=== PATIENT | male | born 1950 | race Caucasian/White ===

== ENCOUNTER 2023-03-28 13:21 | Inpatient (IN) | payer OTHER, MEDICAID ==
[~2023-03-28] VITALS: Ht 180.3 cm; Wt 96.2 kg
[2023-03-28 13:39] VITALS: BP_SYST 126; PULSE 62; RESP 18; TEMP 97.6; O2SAT 95
[2023-03-28] MEDS ORDERED: NACL 0.9% 1,000 ML IV ONE (14:45)
[2023-03-28] MEDS ORDERED: VANCOMYCIN HCL 1,000 MG in NS 250 ML IV ONE (15:15)
[2023-03-28 15:35] LABS: ANION GAP 6 (5-15); CALCIUM 7.5 mg/dL (8.4-11.0); CARBON DIOXIDE 29 mmol/L (23-29); CHLORIDE 107 mmol/L (98-107); CREATININE 1.04 mg/dL (0.55-1.30); GLUCOSE 105 mg/dL (74-106); SODIUM SERUM 142 mmol/L (136-145); UREA NITROGEN, BLOOD 19 mg/dL (8-21)
[2023-03-28] MEDS ORDERED: VANCOMYCIN HCL 1000 MG/VIAL IV ONE ×2 (15:37→15:38)
[2023-03-28 15:38] LABS: INR 1.3 (0.80-1.20); PROTHROMBIN TIME 13.4 SECS (9.5-12.5)
[2023-03-28 15:41] LABS: ALANINE AMINOTRANSFERASE 19 U/L (12-78); ALBUMIN 2.8 g/dL (3.4-4.8); ASPARTATE AMINOTRANSFERASE 23 U/L (10-37); TOTAL PROTEIN, SERUM 6.1 g/dL (6.4-8.3)
[2023-03-28 15:43] LABS: BASOPHILS % (AUTO) 0.2 % (0.0-2.0); EOSINOPHILS # (AUTO) 0.2 K/uL (0.0-0.4); EOSINOPHILS % (AUTO) 5.1 % (0.0-4.0); HEMATOCRIT 33.4 % (36-54); HEMOGLOBIN 11.1 g/dL (14.0-18.0); LYMPHOCYTES # (AUTO) 0.6 K/uL (1.0-5.5); LYMPHOCYTES % (AUTO) 16.7 % (20.5-51.5); MEAN CORPUSCULAR HEMOGLOBIN 29 pg (27-31); MEAN CORPUSCULAR HGB CONC 33 % (32-36); MEAN CORPUSCULAR VOLUME 87 fL (79.0-98.0); MONOCYTES # (AUTO) 0.4 K/uL (0.0-1.0); MONOCYTES % (AUTO) 10.6 % (1.7-9.3); NEUTROPHILS # (AUTO) 2.6 K/uL (1.8-7.7); NEUTROPHILS % (AUTO) 67.4 % (40.0-70.0); PLATELET COUNT (AUTO) 101 K/uL (130-430); RED BLOOD CELL COUNT(AUTO) 3.83 MIL/uL (4.2-6.2); WHITE BLOOD COUNT (AUTO) 3.9 K/uL (4.8-10.8)
[2023-03-28] MEDS ORDERED: [UNRECOGNIZED DRUG - CODE] PO (16:15)
[2023-03-28] MEDS ORDERED: ONDANSETRON HCL 4 MG/2 ML VIAL IVP PRN (16:45)
[2023-03-28] MEDS ORDERED: HYDROcodone/ACETAMIN 5-325 MG TAB (NORCO/ VICODIN) PO PRN (16:45)
[2023-03-28] MEDS ORDERED: HYDROcodone/ACETAMIN 10-325 MG TAB PO PRN (16:45)
[2023-03-28] MEDS ORDERED: LORazepam 2 MG/ML VIAL IVP PRN (16:45)
[2023-03-28] MEDS ORDERED: ACETAMINOPHEN 325 MG TABLET PO PRN ×2 (16:45→17:00)
[2023-03-28] MEDS ORDERED: MONT-47 (18:23)
[2023-03-28] MEDS ORDERED: OMEP40CA20 PO (18:23)
[2023-03-28] MEDS ORDERED: LIP20 PO (18:23)
[2023-03-28] MEDS ORDERED: APIX5TAB PO (18:23)
[2023-03-28] MEDS ORDERED: OXYB-55 PO (18:23)
[2023-03-28] MEDS ORDERED: TAMS-11 PO (18:23)
[2023-03-28] MEDS ORDERED: ISOS20TA8 PO (18:23)
[2023-03-28] MEDS ORDERED: ASPI-859 PO (18:23)
[2023-03-28] MEDS ORDERED: NEU300 PO (18:23)
[2023-03-28] MEDS ORDERED: ALBMDI INH (18:23)
[2023-03-28] MEDS ORDERED: CYCL10TA24 PO (18:23)
[2023-03-28] MEDS ORDERED: DORZ1DRO7 OP (18:24)
[2023-03-28 19:36] LABS: BILIRUBIN,URINE NEGATIVE (NEGATIVE); BLOOD, URINE NEGATIVE (NEGATIVE); CLARITY/URINE CLEAR (CLEAR); COLOR,URINE YELLOW (YELLOW); GLUCOSE,URINE NEGATIVE (NEGATIVE); KETONES,URINE NEGATIVE (NEGATIVE); LEUKOCYTE ESTERASE ,URINE NEGATIVE (NEGATIVE); NITRITE, URINE NEGATIVE (NEGATIVE); PH,URINE 5.5 (5.0-8.0); PROTEIN URINE NEGATIVE (NEGATIVE)
[2023-03-28 20:26] VITALS: BP_SYST 166; PULSE 69; RESP 20; TEMP 97.7; O2SAT 98
[2023-03-29] VITALS (8 sets, daily range): BP systolic 128–166; PULSE 69–91; RESP 16–21; TEMP 97.7–99.4; O2SAT 96–98
[2023-03-29] MEDS: PIPERACILLIN/TAZO 3.375/DEX-IS 50 ML IV SCH ×2 (00:03→06:04)
[2023-03-29] MEDS: NORMAL SALINE 5 ML DISP.SYRIN IVF SCH ×4 (00:03→21:31)
[2023-03-29 05:51] LABS: BASOPHILS % (AUTO) 0.3 % (0.0-2.0); EOSINOPHILS # (AUTO) 0.2 K/uL (0.0-0.4); EOSINOPHILS % (AUTO) 4.6 % (0.0-4.0); HEMATOCRIT 34.9 % (36-54); HEMOGLOBIN 11.5 g/dL (14.0-18.0); LYMPHOCYTES # (AUTO) 0.7 K/uL (1.0-5.5); MEAN CORPUSCULAR HEMOGLOBIN 29 pg (27-31); MEAN CORPUSCULAR HGB CONC 33 % (32-36); MEAN CORPUSCULAR VOLUME 87 fL (79.0-98.0); MONOCYTES # (AUTO) 0.4 K/uL (0.0-1.0); MONOCYTES % (AUTO) 8.6 % (1.7-9.3); NEUTROPHILS # (AUTO) 3.6 K/uL (1.8-7.7); NEUTROPHILS % (AUTO) 72.5 % (40.0-70.0); PLATELET COUNT (AUTO) 108 K/uL (130-430); RED BLOOD CELL COUNT(AUTO) 4.02 MIL/uL (4.2-6.2); RED CELL DISTRIBUTION WIDTH 17.2 % (9.0-15.0); WHITE BLOOD COUNT (AUTO) 4.9 K/uL (4.8-10.8)
[2023-03-29 06:23] LABS: ALANINE AMINOTRANSFERASE 19 U/L (12-78); ALBUMIN 2.9 g/dL (3.4-4.8); ANION GAP 10 (5-15); ASPARTATE AMINOTRANSFERASE 23 U/L (10-37); CALCIUM 7.6 mg/dL (8.4-11.0); CARBON DIOXIDE 26 mmol/L (23-29); CHLORIDE 106 mmol/L (98-107); CREATININE 0.81 mg/dL (0.55-1.30); GLUCOSE 90 mg/dL (74-106); PHOSPHORUS 2.7 mg/dL (2.7-4.5); POTASSIUM 3.6 mmol/L (3.5-5.1); SODIUM SERUM 142 mmol/L (136-145); TOTAL BILIRUBIN 1.2 mg/dL (0.0-1.0); TOTAL PROTEIN, SERUM 6.1 g/dL (6.4-8.3); UREA NITROGEN, BLOOD 16 mg/dL (8-21)
[2023-03-29] MEDS ORDERED: MENTHOL/ZINC OXIDE 113 GM OINT. TP PRN (13:00)
[2023-03-29] MEDS: VANCOMYCIN HCL 1,250 MG in NS 250 ML IV SCH (13:55)
[2023-03-29] MEDS: BALSAM PERU/CASTOR OIL 56.7 GM OINT...G. TP SCH (15:03)
[2023-03-29] MEDS: DORZOLAMIDE HCL/TIMOLOL MAL. 10 ML EYE DROPS (COSOPT) OP SCH (21:25)
[2023-03-29] MEDS: CELECOXIB 200 MG CAPSULE PO SCH (21:27)
[2023-03-29] MEDS: GABAPENTIN 300 MG CAPSULE PO SCH (21:27)
[2023-03-29] MEDS: CYCLOBENZAPRINE HCL 10 MG TABLET (FLEXERIL) PO SCH (21:28)
[2023-03-29] MEDS: ISOSORBIDE DINITRATE 20 MG TABLET (ISORDIL) PO SCH (21:28)
[2023-03-29] MEDS: ATORVASTATIN 20 MG TABLET PO SCH (21:29)
[2023-03-29] MEDS: APIXABAN 2.5 MG TABLET PO SCH (21:31)
[2023-03-29] MEDS: CEFEPIME 2 GM in D5W 100 ML IV SCH (21:46)
[2023-03-30 00:57] VITALS: BP_SYST 109; PULSE 61; RESP 17; TEMP 98.9; O2SAT 99
[2023-03-30] MEDS: VANCOMYCIN HCL 1,250 MG in NS 250 ML IV SCH ×2 (01:33→14:18)
[2023-03-30 05:02] LABS: ERYTHROCYTE SEDIMENTATION RATE 21 MM/HR (0-15)
[2023-03-30 05:14] LABS: BASOPHILS % (AUTO) 0.4 % (0.0-2.0); EOSINOPHILS # (AUTO) 0.1 K/uL (0.0-0.4); EOSINOPHILS % (AUTO) 3.1 % (0.0-4.0); HEMATOCRIT 32.6 % (36-54); HEMOGLOBIN 10.8 g/dL (14.0-18.0); LYMPHOCYTES # (AUTO) 0.8 K/uL (1.0-5.5); LYMPHOCYTES % (AUTO) 18.7 % (20.5-51.5); MEAN CORPUSCULAR HEMOGLOBIN 29 pg (27-31); MEAN CORPUSCULAR HGB CONC 33 % (32-36); MEAN CORPUSCULAR VOLUME 87 fL (79.0-98.0); MONOCYTES # (AUTO) 0.6 K/uL (0.0-1.0); MONOCYTES % (AUTO) 13.9 % (1.7-9.3); NEUTROPHILS # (AUTO) 2.7 K/uL (1.8-7.7); NEUTROPHILS % (AUTO) 63.9 % (40.0-70.0); PLATELET COUNT (AUTO) 102 K/uL (130-430); RED BLOOD CELL COUNT(AUTO) 3.75 MIL/uL (4.2-6.2); RED CELL DISTRIBUTION WIDTH 17.1 % (9.0-15.0); WHITE BLOOD COUNT (AUTO) 4.3 K/uL (4.8-10.8)
[2023-03-30 05:26] LABS: ANION GAP 9 (5-15); CARBON DIOXIDE 25 mmol/L (23-29); CHLORIDE 106 mmol/L (98-107); CREATININE 0.85 mg/dL (0.55-1.30); GLUCOSE 88 mg/dL (74-106); POTASSIUM 3.4 mmol/L (3.5-5.1); SODIUM SERUM 140 mmol/L (136-145); UREA NITROGEN, BLOOD 14 mg/dL (8-21)
[2023-03-30 05:33] LABS: VANCOMYCIN,TROUGH 27.1 ug/mL (10.0-20.0)
[2023-03-30] MEDS: NORMAL SALINE 5 ML DISP.SYRIN IVF SCH ×3 (05:37→21:17)
[2023-03-30 07:48] VITALS: BP_SYST 110; PULSE 48; RESP 18; TEMP 98.8; O2SAT 95
[2023-03-30 08:00] VITALS: O2SAT 95
[2023-03-30] MEDS: GABAPENTIN 300 MG CAPSULE PO SCH ×3 (08:54→21:12)
[2023-03-30] MEDS: TAMSULOSIN HCL 0.4 MG CAP PO SCH (08:54)
[2023-03-30] MEDS: PANTOPRAZOLE SODIUM 40 MG TAB PO SCH (08:54)
[2023-03-30] MEDS: MONTELUKAST 10 MG TABLET PO SCH (08:54)
[2023-03-30] MEDS: ASPIRIN 81 MG TABLET(ECOTRIN) PO SCH (08:54)
[2023-03-30] MEDS: ISOSORBIDE DINITRATE 20 MG TABLET (ISORDIL) PO SCH ×2 (08:54→21:14)
[2023-03-30] MEDS: CELECOXIB 200 MG CAPSULE PO SCH ×2 (08:54→21:13)
[2023-03-30] MEDS: CEFEPIME 2 GM in D5W 100 ML IV SCH ×2 (08:55→22:07)
[2023-03-30] MEDS: APIXABAN 2.5 MG TABLET PO SCH ×2 (08:59→21:16)
[2023-03-30] MEDS: DORZOLAMIDE HCL/TIMOLOL MAL. 10 ML EYE DROPS (COSOPT) OP SCH ×2 (09:03→21:14)
[2023-03-30] MEDS ORDERED: POTASSIUM CHLORIDE 20 MEQ TAB.PRT.SR PO ONE (11:00)
[2023-03-30] MEDS ORDERED: CALCIUM 500 MG/TAB PO ONE (11:15)
[2023-03-30 11:56] VITALS: BP_SYST 122; PULSE 60; RESP 19; TEMP 98.6; O2SAT 96
[2023-03-30 16:39] VITALS: BP_SYST 121; PULSE 62; RESP 19; TEMP 98.2; O2SAT 98
[2023-03-30] MEDS: BALSAM PERU/CASTOR OIL 56.7 GM OINT...G. TP SCH (16:48)
[2023-03-30 20:00] VITALS: BP_SYST 140; PULSE 68; RESP 18; TEMP 97.5; O2SAT 99
[2023-03-30] MEDS ORDERED: CALCIUM CARBONATE 650 MG TABLET PO SCH (21:00)
[2023-03-30] MEDS: CYCLOBENZAPRINE HCL 10 MG TABLET (FLEXERIL) PO SCH (21:12)
[2023-03-30] MEDS: ATORVASTATIN 20 MG TABLET PO SCH (21:13)
[2023-03-31] VITALS (8 sets, daily range): BP systolic 116–156; PULSE 62–73; RESP 15–20; TEMP 97.3–98.2; O2SAT 92–98
[2023-03-31] MEDS: VANCOMYCIN HCL 1,250 MG in NS 250 ML IV SCH ×2 (02:48→13:35)
[2023-03-31] MEDS: NORMAL SALINE 5 ML DISP.SYRIN IVF SCH ×3 (06:00→21:12)
[2023-03-31 07:03] LABS: ALANINE AMINOTRANSFERASE 19 U/L (12-78); ALBUMIN 2.5 g/dL (3.4-4.8); ANION GAP 7 (5-15); ASPARTATE AMINOTRANSFERASE 25 U/L (10-37); CALCIUM 7.7 mg/dL (8.4-11.0); CARBON DIOXIDE 25 mmol/L (23-29); CHLORIDE 107 mmol/L (98-107); CREATININE 0.92 mg/dL (0.55-1.30); GLUCOSE 103 mg/dL (74-106); PHOSPHORUS 4.1 mg/dL (2.7-4.5); POTASSIUM 4.1 mmol/L (3.5-5.1); SODIUM SERUM 139 mmol/L (136-145); TOTAL BILIRUBIN 1.1 mg/dL (0.0-1.0); TOTAL PROTEIN, SERUM 5.7 g/dL (6.4-8.3); UREA NITROGEN, BLOOD 23 mg/dL (8-21)
[2023-03-31 07:10] LABS: BASOPHILS % (AUTO) 0.3 % (0.0-2.0); EOSINOPHILS # (AUTO) 0.2 K/uL (0.0-0.4); EOSINOPHILS % (AUTO) 7.2 % (0.0-4.0); HEMATOCRIT 32.5 % (36-54); HEMOGLOBIN 10.7 g/dL (14.0-18.0); LYMPHOCYTES # (AUTO) 0.7 K/uL (1.0-5.5); LYMPHOCYTES % (AUTO) 20.2 % (20.5-51.5); MEAN CORPUSCULAR HEMOGLOBIN 29 pg (27-31); MEAN CORPUSCULAR HGB CONC 33 % (32-36); MEAN CORPUSCULAR VOLUME 87 fL (79.0-98.0); MONOCYTES # (AUTO) 0.4 K/uL (0.0-1.0); MONOCYTES % (AUTO) 11.8 % (1.7-9.3); NEUTROPHILS # (AUTO) 2.1 K/uL (1.8-7.7); NEUTROPHILS % (AUTO) 60.5 % (40.0-70.0); PLATELET COUNT (AUTO) 95 K/uL (130-430); RED BLOOD CELL COUNT(AUTO) 3.73 MIL/uL (4.2-6.2); RED CELL DISTRIBUTION WIDTH 17.1 % (9.0-15.0); WHITE BLOOD COUNT (AUTO) 3.5 K/uL (4.8-10.8)
[2023-03-31 07:55] LABS: ERYTHROCYTE SEDIMENTATION RATE 24 MM/HR (0-15)
[2023-03-31] MEDS: ISOSORBIDE DINITRATE 20 MG TABLET (ISORDIL) PO SCH ×2 (09:02→21:19)
[2023-03-31] MEDS: ASPIRIN 81 MG TABLET(ECOTRIN) PO SCH (09:02)
[2023-03-31] MEDS: MONTELUKAST 10 MG TABLET PO SCH (09:02)
[2023-03-31] MEDS: PANTOPRAZOLE SODIUM 40 MG TAB PO SCH (09:02)
[2023-03-31] MEDS: CELECOXIB 200 MG CAPSULE PO SCH ×2 (09:02→21:18)
[2023-03-31] MEDS: CALCIUM 500 MG/TAB PO SCH (09:02)
[2023-03-31] MEDS: GABAPENTIN 300 MG CAPSULE PO SCH ×3 (09:02→21:19)
[2023-03-31] MEDS: TAMSULOSIN HCL 0.4 MG CAP PO SCH (09:02)
[2023-03-31] MEDS: CEFEPIME 2 GM in D5W 100 ML IV SCH ×2 (09:04→21:04)
[2023-03-31] MEDS: APIXABAN 2.5 MG TABLET PO SCH ×2 (09:09→21:21)
[2023-03-31] MEDS: BALSAM PERU/CASTOR OIL 56.7 GM OINT...G. TP SCH (09:10)
[2023-03-31] MEDS: DORZOLAMIDE HCL/TIMOLOL MAL. 10 ML EYE DROPS (COSOPT) OP SCH ×2 (09:10→21:00)
[2023-03-31] MEDS ORDERED: DOXY-244 PO (13:59)
[2023-03-31] MEDS ORDERED: ROCPM1 IV (14:56)
[2023-03-31] MEDS: DOXYCYCLINE HYCLATE 100 MG CAPSULE PO SCH (21:18)
[2023-03-31] MEDS: ATORVASTATIN 20 MG TABLET PO SCH (21:19)
[2023-03-31] MEDS: CYCLOBENZAPRINE HCL 10 MG TABLET (FLEXERIL) PO SCH (21:19)
[2023-04-01 00:22] VITALS: BP_SYST 133; PULSE 69; RESP 18; TEMP 98.2; O2SAT 97
[2023-04-01] MEDS: VANCOMYCIN HCL 1,250 MG in NS 250 ML IV SCH ×2 (02:14→14:33)
[2023-04-01 05:01] LABS: ERYTHROCYTE SEDIMENTATION RATE 23 MM/HR (0-15)
[2023-04-01 05:12] LABS: ANION GAP 6 (5-15); CALCIUM 7.8 mg/dL (8.4-11.0); CARBON DIOXIDE 27 mmol/L (23-29); CHLORIDE 107 mmol/L (98-107); CREATININE 1.02 mg/dL (0.55-1.30); GLUCOSE 98 mg/dL (74-106); POTASSIUM 4.2 mmol/L (3.5-5.1); SODIUM SERUM 140 mmol/L (136-145); UREA NITROGEN, BLOOD 23 mg/dL (8-21)
[2023-04-01] MEDS: NORMAL SALINE 5 ML DISP.SYRIN IVF SCH ×2 (05:24→14:00)
[2023-04-01 06:05] LABS: BASOPHILS % (AUTO) 0.3 % (0.0-2.0); EOSINOPHILS # (AUTO) 0.2 K/uL (0.0-0.4); EOSINOPHILS % (AUTO) 7.5 % (0.0-4.0); HEMATOCRIT 32.9 % (36-54); HEMOGLOBIN 10.8 g/dL (14.0-18.0); LYMPHOCYTES # (AUTO) 0.6 K/uL (1.0-5.5); LYMPHOCYTES % (AUTO) 19.2 % (20.5-51.5); MEAN CORPUSCULAR HEMOGLOBIN 29 pg (27-31); MEAN CORPUSCULAR HGB CONC 33 % (32-36); MEAN CORPUSCULAR VOLUME 87 fL (79.0-98.0); MONOCYTES # (AUTO) 0.4 K/uL (0.0-1.0); MONOCYTES % (AUTO) 11.5 % (1.7-9.3); NEUTROPHILS % (AUTO) 61.5 % (40.0-70.0); PLATELET COUNT (AUTO) 104 K/uL (130-430); RED CELL DISTRIBUTION WIDTH 17.1 % (9.0-15.0); WHITE BLOOD COUNT (AUTO) 3.3 K/uL (4.8-10.8)
[2023-04-01 08:00] VITALS: BP_SYST 142; PULSE 71; RESP 17; TEMP 97.8; O2SAT 95
[2023-04-01] MEDS: DORZOLAMIDE HCL/TIMOLOL MAL. 10 ML EYE DROPS (COSOPT) OP SCH (09:00)
[2023-04-01] MEDS: BALSAM PERU/CASTOR OIL 56.7 GM OINT...G. TP SCH (09:00)
[2023-04-01] MEDS: GABAPENTIN 300 MG CAPSULE PO SCH ×2 (09:58→14:33)
[2023-04-01] MEDS: MONTELUKAST 10 MG TABLET PO SCH (09:58)
[2023-04-01] MEDS: CEFEPIME 2 GM in D5W 100 ML IV SCH (09:58)
[2023-04-01] MEDS: CELECOXIB 200 MG CAPSULE PO SCH (09:58)
[2023-04-01] MEDS: CALCIUM 500 MG/TAB PO SCH (09:58)
[2023-04-01] MEDS: ASPIRIN 81 MG TABLET(ECOTRIN) PO SCH (09:58)
[2023-04-01] MEDS: APIXABAN 2.5 MG TABLET PO SCH (10:00)
[2023-04-01] MEDS: TAMSULOSIN HCL 0.4 MG CAP PO SCH (10:02)
[2023-04-01] MEDS: ISOSORBIDE DINITRATE 20 MG TABLET (ISORDIL) PO SCH (10:02)
[2023-04-01] MEDS: PANTOPRAZOLE SODIUM 40 MG TAB PO SCH (10:02)
[2023-04-01] MEDS: DOXYCYCLINE HYCLATE 100 MG CAPSULE PO SCH (10:07)
[2023-04-01 12:45] VITALS: BP_SYST 142; PULSE 71; RESP 17; TEMP 97.8; O2SAT 97
[2023-04-01 16:57] VITALS: BP_SYST 140; PULSE 72; RESP 16; TEMP 97.7; O2SAT 96
[2023-04-01 17:43] VITALS: BP_SYST 136; PULSE 65; RESP 17; TEMP 97.9; O2SAT 97
== END 2023-04-01 18:14 | disposition home health service (06) | DRG 602 ==
LOC: SED 13:21 → SMU 16:45
PROVIDERS: ADMIT Preventive Medicine Preventive Medicine/Occupational Environmental Medicine; ATTEND Preventive Medicine Preventive Medicine/Occupational Environmental Medicine
PROC: 02HV33Z Insertion of Infusion Device into Superior Vena Cava, Percutaneous Approach (ICD-10-PCS; principal; 2023-03-28)
PROC: B548ZZA Ultrasonography of Superior Vena Cava, Guidance (ICD-10-PCS; 2023-03-28)
DX: L03.115 Cellulitis of right lower limb (principal); E43 Unspecified severe protein-calorie malnutrition; D61.818 Other pancytopenia; Z16.24 Resistance to multiple antibiotics; L97.919 Non-pressure chronic ulcer of unspecified part of right lower leg with unspecified severity; L97.929 Non-pressure chronic ulcer of unspecified part of left lower leg with unspecified severity; L03.116 Cellulitis of left lower limb; I87.2 Venous insufficiency (chronic) (peripheral); I10 Essential (primary) hypertension; E88.09 Other disorders of plasma-protein metabolism, not elsewhere classified; E87.6 Hypokalemia; E80.6 Other disorders of bilirubin metabolism; N40.0 Benign prostatic hyperplasia without lower urinary tract symptoms; I25.10 Atherosclerotic heart disease of native coronary artery without angina pectoris; D69.6 Thrombocytopenia, unspecified; I73.9 Peripheral vascular disease, unspecified; E83.51 Hypocalcemia; Z88.2 Allergy status to sulfonamides; Z79.899 Other long term (current) drug therapy; Z86.73 Personal history of transient ischemic attack (TIA), and cerebral infarction without residual deficits; Z79.01 Long term (current) use of anticoagulants; Z68.29 Body mass index [BMI] 29.0-29.9, adult
CPT/HCPCS: 36415; 71045; 73590-TC; 80048; 80053; 80202; 81003; 83605; 83735; 83880; 84100; 84484; 85025; 85379; 85610-TC; 85651-TC; 85730-TC; 87040; 87070-TC; 87075-TC; 87081; 87086; 93005; 93923; 93970; 97110-GP; 97112-GP; 97116-GP; 97530-GP; 99285; J0692; J2543; J3370; J7050; J7060